=== PATIENT | male | born 1980 | race Caucasian/White ===

== ENCOUNTER 2017-06-27 00:02 | Emergency (ER) | payer OTHER ==
[~2017-06-27] VITALS: Ht 177.8 cm; Wt 115.7 kg
[~2017-06-27 00:02] MED LIST: CLINDAMYCIN HC150 MG PO; DEXAMETHASONE4 MG PO; KEFLEX500 MG PO; NAPROSYN500 MG PO; NORCO 10-325 T1 EACH PO; PRILOSEC20 MG PO
== END 2017-06-27 01:45 | disposition home or self-care (01) ==
LOC: ED 00:02
DX: S01.111A Laceration without foreign body of right eyelid and periocular area, initial encounter (principal); F17.200 Nicotine dependence, unspecified, uncomplicated; Z98.890 Other specified postprocedural states; Z88.0 Allergy status to penicillin; W22.8XXA Striking against or struck by other objects, initial encounter; Y92.69 Other specified industrial and construction area as the place of occurrence of the external cause; Y99.0 Civilian activity done for income or pay
CPT/HCPCS: 99282

== ENCOUNTER 2023-07-20 19:35 | Emergency (ER) | payer OTHER ==
[~2023-07-20] VITALS: Ht 180.3 cm; Wt 0.1 kg
[~2023-07-20 19:35] MED LIST changes: +LAMICTAL200 MG PO
[2023-07-20 21:31] VITALS: BP 151/91
== END 2023-07-20 21:32 | disposition home or self-care (01) ==
LOC: ED 19:35
DX: H01.001 Unspecified blepharitis right upper eyelid (principal); T65.91XA Toxic effect of unspecified substance, accidental (unintentional), initial encounter; H10.211 Acute toxic conjunctivitis, right eye; Y99.0 Civilian activity done for income or pay; F17.200 Nicotine dependence, unspecified, uncomplicated; Z88.0 Allergy status to penicillin; Z79.899 Other long term (current) drug therapy